=== PATIENT | female | born 1945 | race Caucasian/White ===

== ENCOUNTER 2023-11-02 22:02 | Emergency (ER) | payer OTHER ==
[2023-11-02 23:02] LABS: Absolute Basophils 0.1 K/uL (0-0.5); Absolute Eosinophils 0.4 K/uL (0-0.5); Absolute Lymphocytes (CBC) 2.8 K/uL (0.7-4.9); Absolute Monocytes 0.9 K/uL (0.1-1.3); Absolute Neutrophil 4.4 K/uL (1.8-8.0); Basophils % 0.7 % (0-1.3); Eosinophils % 4.6 % (0-4.4); Hematocrit 38.6 % (36.0-45.0); Hemoglobin 13.4 g/dL (12.0-15.0); Lymphocytes % 32.6 % (15.3-44.8); MCH 35.4 pg (27.0-35.0); MCHC 34.7 g/dL (32.0-36.0); MCV 101.9 fL (80-100); MPV 7.9 fL (7.6-11.3); Monocytes % 10.2 % (3.3-12.3); Neutrophils % 51.9 % (41.7-73.7); Nucleated Red Blood Cells % 0.1 % (0-0); Platelets 209 thou/uL (152-406); RBC Red Blood Cell Count 3.79 M/uL (3.86-4.86); Red Cell Distribution Width 13.1 % (12.1-15.2)
[2023-11-02 23:06] LABS: D-Dimer 0.234 FEUug/mL (0-0.500); PT Prothrombin Time 10.1 SECONDS (9.4-12.5); Protime INR 0.9
[2023-11-02 23:27] LABS: ALT/SGPT 21 U/L (13-56); AST/SGOT 17 U/L (15-37); Albumin 3.6 g/dL (3.4-5.0); Albumin/Globulin Ratio 1.1 (1.1-1.8); Alkaline Phosphatase 46 U/L (45-117); Anion Gap 10.5 mEq/L (5.0-15.0); BUN Blood Urea Nitrogen 34 mg/dL (7-18); Bicarbonate 25 mEq/L (21-32); Bilirubin Total 0.3 mg/dL (0.2-1.0); Globulin 3.2 g/dL (2.3-3.5); Glomerular Filtration Rate 44 ml/min (=/>90); NT PRO-BNP 419 pg/mL (<450); Potassium 3.5 mEq/L (3.5-5.1); Protein, Total 6.8 g/dL (6.4-8.2); Sodium Level 139 mEq/L (136-145); Troponin High Sensitivity 8.6 pg/mL (<58.9)
[2023-11-02 23:32] LABS: Bilirubin Direct < 0.2 mg/dL (0-0.2); Bilirubin Indirect, Calculated 0.1 mg/dL (0.2-0.8); Glucose Level 166 mg/dL (74-106)
[2023-11-03] MEDS ORDERED: NA CHLORIDE 0.9% 1,000 ML ONE (00:28)
--- NOTE | 2023-11-03 01:18 | EDPHYS ---
Physician Documentation [facility] Name: Jenise Inman Age: 78 yrs Sex: Female : 1945 Arrival Date: 11/02/2023 Time: 22:02 Bed 15 Private MD: ED Physician Eyal Stoner HPI: 11/02 01:05 This 78 yrs old Female presents to ER via Ambulatory with complaints of Irregular sb4 Pulse, Chest Pain. 01:05 Patient states that she has been experiencing palpitations and fluttering in her chest sb4 intermittently for about 1 year now. She states that she was initially on carvedilol but her PCP took her off of it. She saw cardiology who placed her on nebivolol and did a Holter monitor. After the results, he doubled her nebivolol. She states that he did not tell her what exactly the Holter monitor showed. She states that her symptoms did improve after doubling the medication. However, she states that the fluttering in her chest lasted longer tonight and that concerned her. She denies any pain, shortness of breath, dizziness. States that she has had negative stress test in the past. Historical: - Allergies: 11/01 22:08 NSAIDS; lg3 - PMHx: 22:08 Hypertensive disorder; Hypothyroidism; lg3 - PSHx: 22:08 pelvic prolapse; vaginal prolapse; Total abdominal hysterectomy; lg3 - Immunization history:: Adult Immunizations up to date. - Infectious Disease History:: Denies. - Social history:: Smoking status: Patient denies any tobacco usage or history of. ROS: 11/02 01:05 Constitutional: Negative for fever, chills, and weight loss, sb4 Cardiovascular: Positive for palpitations, All other systems are negative, Exam: 01:05 Constitutional: This is a well developed, well nourished patient who is awake, alert, sb4 and in no acute distress. Head/Face: Normocephalic, atraumatic. Eyes: Extra-ocular motions intact. Periorbital areas with no swelling, redness, or edema. ENT: Mucous membranes moist. Cardiovascular: Regular rate and rhythm with a normal S1 and S2. Respiratory: Lungs have equal breath sounds bilaterally, clear to auscultation and percussion. No rales, rhonchi or wheezes noted. No increased work of breathing, no retractions or nasal flaring. Abdomen/GI: Soft, non-tender, no distension. Skin: Warm, dry with normal turgor. Normal color with no rashes, no lesions, and no evidence of cellulitis. MS/ Extremity: Pulses equal, no cyanosis. Neurovascular intact. Full, normal range of motion. Neuro: Awake and alert, GCS 15, oriented to person, place, time, and situation. Motor strength 5/5 in all extremities. Sensory grossly intact. Vital Signs: 11/01 22:06 BP 180 / 62; Pulse 59; Resp 17; Temp 97.2(TE); Pulse Ox 98% on R/A; Weight 68.95 kg lg3 (R); Height 5 ft. 6 in. (R); Pain 0/10; 23:00 BP 130 / 55; Pulse 56; Resp 18; Pulse Ox 97% on R/A; me1 23:27 BP 155 / 66; Pulse 55; Resp 19; Pulse Ox 98% ; me1 22:06 Body Mass Index 24.53 (68.95 kg, 167.64 cm) lg3 22:06 Pain Scale: Adult lg3 MDM: 22:14 Patient medically screened. sb4 11/02 01:09 Data reviewed: vital signs, nurses notes, lab test result(s), EKG, radiologic studies, sb4 and as a result, I will discharge patient. Counseling: I had a detailed discussion with the patient and/or guardian regarding the historical points, exam findings, and any diagnostic results supporting the discharge/admit diagnosis, lab results, radiology results, the need for outpatient follow up, a regional facilities specialist, to return to the emergency department if symptoms worsen or persist or if there are any questions or concerns that arise at home. 11/01 22:32 Order name: Basic Metabolic Panel; Complete Time: 00:57 sb4 11/01 22:32 Order name: CBC with Diff; Complete Time: 23:18 sb4 11/01 22:32 Order name: D-Dimer; Complete Time: 23:18 sb4 11/01 22:32 Order name: LFT's; Complete Time: 00:57 sb4 11/01 22:32 Order name: Magnesium; Complete Time: 00:57 sb4 11/01 22:32 Order name: NT PRO-BNP; Complete Time: 00:57 sb4 11/01 22:32 Order name: PT-INR; Complete Time: 23:18 sb4 11/01 22:32 Order name: Troponin HS; Complete Time: 00:57 sb4 11/01 23:44 Order name: Add On-Lab sb4 11/01 23:49 Order name: Thyroid Stimulating Hormone; Complete Time: 00:57 EDMS 11/02 00:34 Order name: T4 Free; Complete Time: 00:57 EDMS 11/01 22:32 Order name: XRAY Chest (1 view) sb4 11/01 22:32 Order name: EKG; Complete Time: 22:33 sb4 11/01 22:32 Order name: Cardiac monitoring; Complete Time: 22:54 sb4 11/01 22:32 Order name: EKG - Nurse/Tech; Complete Time: 22:53 sb4 11/01 22:32 Order name: IV Saline Lock; Complete Time: 22:53 sb4 11/01 22:32 Order name: Labs collected and sent; Complete Time: 22:53 sb4 11/01 22:32 Order name: O2 Per Protocol; Complete Time: 22:53 sb4 11/01 22:32 Order name: O2 Sat Monitoring; Complete Time: 22:53 sb4 EC:07 Rate is 56 beats/min. Rhythm is regular, Sinus bradycardia. TX interval is normal at sb4 158 msec. QRS interval is normal at 80 msec. QT interval is normal at 442 msec. No Q waves. T waves are Normal. No ST changes noted. Clinical impression: Sinus bradycardia. Interpreted by me. Reviewed by me. Administered Medications: 00:47 Drug: NS 0.9% IV 1000 ml IV at 1 bolus Per protocol; 1000 mL bolus Route: IV; Rate: 1 jb4 bolus; Site: right antecubital; Disposition: 01:09 Chart complete. Chart complete. sb4 04:36 Co-signature as Attending Physician, Eyal Stoner MD I reviewed the patient's care rn provided by the Advanced Practice Provider and agree with the diagnosis and treatment plan. Disposition Summary: 11/03/23 01:18 Discharge Ordered Notes: Location: Home sb4 Problem: new sb4 Symptoms: have improved sb4 Condition: Stable sb4 Diagnosis - Palpitations sb4 Followup: sb4 - With: Macario Lantigua MD - When: 1 week - Reason: Recheck today's complaints, Re-evaluation by your physician Discharge Instructions: - Discharge Summary Sheet sb4 - Palpitations sb4 Forms: - Patient Portal Instructions sb4 - Leadership Thank You Letter sb4 Signatures: Dispatcher [employer] Eyal Wood MD MD rn Bryson, James, RN RN jb4 Doreen Esquivel RN RN alen3 Shannan Machuca, LAKESHIA ASHER sb4
--- NOTE | 2023-11-03 01:18 | ER ---
Nurse's Notes [facility] Name: Jenise Inman Age: 78 yrs Sex: Female : 1945 Arrival Date: 11/02/2023 Time: 22:02 Bed 15 Private MD: Diagnosis: Palpitations Presentation: 11/01 22:06 Chief complaint: Patient states: my heart is fluttering and i feel thuds for the last lg3 1.5 hours. Coronavirus screen: Client denies travel out of the [place] in the last 14 days. At this time, the client does not indicate any symptoms associated with coronavirus-19. Ebola Screen: No symptoms or risks identified at this time. Initial Sepsis Screen: Does the patient meet any 2 criteria? No. Patient's initial sepsis screen is negative. Does the patient have a suspected source of infection? No. Patient's initial sepsis screen is negative. Risk Assessment: Do you want to hurt yourself or someone else? Patient reports no desire to harm self or others. Onset of symptoms was November 02, 2023. 22:06 Method Of Arrival: Ambulatory lg3 22:06 Acuity: DANIEL 3 lg3 Triage Assessment: 22:08 General: Appears in no apparent distress. uncomfortable, Behavior is calm, cooperative. lg3 Pain: Denies pain. EENT: No deficits noted. No signs and/or symptoms were reported regarding the EENT system. Neuro: No deficits noted. Toney Agitation-Sedation Scale (RASS): 0 - Alert and Calm Level of Consciousness is awake, alert, obeys commands, Oriented to person, place, time, situation. Cardiovascular: Reports palpitations. Respiratory: No deficits noted. Airway is patent Respiratory effort is even, unlabored, Respiratory pattern is regular, symmetrical. GI: No deficits noted. No signs and/or symptoms were reported involving the gastrointestinal system. : No deficits noted. No signs and/or symptoms were reported regarding the genitourinary system. Derm: No deficits noted. No signs and/or symptoms reported regarding the dermatologic system. Skin is intact, is healthy with good turgor, Skin is dry, Skin is normal, Skin temperature is warm. Musculoskeletal: No deficits noted. No signs and/or symptoms reported regarding the musculoskeletal system. Circulation, motion, and sensation intact. Range of motion: intact in all extremities. Historical: - Allergies: 22:08 NSAIDS; lg3 - PMHx: 22:08 Hypertensive disorder; Hypothyroidism; lg3 - PSHx: 22:08 pelvic prolapse; vaginal prolapse; Total abdominal hysterectomy; lg3 - Immunization history:: Adult Immunizations up to date. - Infectious Disease History:: Denies. - Social history:: Smoking status: Patient denies any tobacco usage or history of. Screenin:20 [facility] ED Fall Risk Assessment (Adult) History of falling in the last 3 months, me1 including since admission No falls in past 3 months (0 pts) Confusion or Disorientation No (0 pts) Intoxicated or Sedated No (0 pts) Impaired Gait No (0 pts) Mobility Assist Device Used No (0 pt) Altered Elimination No (0 pt) Score/Fall Risk Level 0 - 2 = Low Risk Maintained a safe environment, Provided non-skid footwear, Hourly rounding (assess needs \\T\\ fall precautionary measures) done. Abuse screen: Denies threats or abuse. Nutritional screening: No deficits noted. Tuberculosis screening: No symptoms or risk factors identified. Assessment: 22:20 General: Appears comfortable, well groomed, well developed, well nourished, Behavior is me1 calm, cooperative, appropriate for age, Reports my heart is fluttering and then "I feels thuds" for the last 1.5 hours. Pain: Denies pain. Neuro: Level of Consciousness is awake, alert, obeys commands, Oriented to person, place, time, situation, Appropriate for age. Cardiovascular: Patient's skin is warm and dry. Cardiovascular: Reports palpitations. Respiratory: Airway is patent Respiratory effort is even, unlabored, Respiratory pattern is regular, symmetrical. GI: No signs and/or symptoms were reported involving the gastrointestinal system. : No signs and/or symptoms were reported regarding the genitourinary system. EENT: No signs and/or symptoms were reported regarding the EENT system. Derm: Skin is intact, is healthy with good turgor, Skin is pink, warm \\T\\ dry. Musculoskeletal: No signs and/or symptoms reported regarding the musculoskeletal system. 11/02 00:00 Reassessment: Patient appears in no apparent distress at this time. Patient and/or jb4 family updated on plan of care and expected duration. Pain level reassessed. Patient is alert, oriented x 3, equal unlabored respirations, skin warm/dry/pink. 01:26 Reassessment: Patient appears in no apparent distress at this time. Patient and/or jb4 family updated on plan of care and expected duration. Pain level reassessed. Patient is alert, oriented x 3, equal unlabored respirations, skin warm/dry/pink. D/c pending completion of IV fluids. Vital Signs: 11/01 22:06 BP 180 / 62; Pulse 59; Resp 17; Temp 97.2(TE); Pulse Ox 98% on R/A; Weight 68.95 kg lg3 (R); Height 5 ft. 6 in. (R); Pain 0/10; 23:00 BP 130 / 55; Pulse 56; Resp 18; Pulse Ox 97% on R/A; me1 23:27 BP 155 / 66; Pulse 55; Resp 19; Pulse Ox 98% ; me1 22:06 Body Mass Index 24.53 (68.95 kg, 167.64 cm) lg3 22:06 Pain Scale: Adult lg3 ED Course: 22:04 Patient arrived in ED. jj6 22:05 Shannan Machuca PA-C is PHCP. sb4 22:05 Eyal Stoner MD is Attending Physician. sb4 22:08 Triage completed. lg3 22:08 Arm band placed on left wrist. lg3 22:17 Lucinda Gamez, RN is Primary Nurse. me1 22:20 Patient has correct armband on for positive identification. Bed in low position. Call id1 light in reach. Side rails up X2. Provided Education on: POC. Verbalized understanding. . Client placed on continuous cardiac and pulse oximetry monitoring. NIBP monitoring applied. investigation clerk on. Pulse ox on. NIBP on. 22:20 No provider procedures requiring assistance completed. Patient maintains SpO2 me1 saturation greater than 95% on room air. 22:48 XRAY Chest (1 view) In Process Unspecified. EDMS 22:53 Basic Metabolic Panel Sent. me1 22:53 CBC with Diff Sent. me1 22:53 D-Dimer Sent. me1 22:53 LFT's Sent. me1 22:53 Magnesium Sent. me1 22:53 NT PRO-BNP Sent. me1 22:53 PT-INR Sent. me1 22:53 Troponin HS Sent. me1 22:53 Initial lab(s) drawn, by me, sent to lab. Inserted saline lock: 22 gauge in right id1 antecubital area, using aseptic technique. Blood collected. Flushed with 10 mL NS. 23:46 Add On-Lab Sent. id1 11/02 01:17 Macario Lantigua MD is Referral Physician. sb4 Administered Medications: 00:47 Drug: NS 0.9% IV 1000 ml IV at 1 bolus Per protocol; 1000 mL bolus Route: IV; Rate: 1 jb4 bolus; Site: right antecubital; Medication: 11/01 22:20 VIS not applicable for this client. [facility] Outcome: 11/02 01:18 Discharge ordered by . sb4 02:29 Patient left the ED. jb4 Signatures: Dispatcher [employer] EDRamos Newton, RN RN jb4 Doreen Esquivel RN RN lg3 Joana Lambert Sophia, PABrittanyC PA-C sb4 Lucinda Gamez RN RN id1 Corrections: (The following items were deleted from the chart) 11/01 22:43 22:06 Chief complaint: Patient states: my heart is fluttering and i feel thuds for the me1 last 1.5 hours 3 23:19 22:06 Chief complaint: Patient states: my heart is fluttering and i feel thuds for the me1 last 1.5 hours id1
[2023-11-03 03:14] VITALS: TEMP 97.2
[2023-11-03 03:18] VITALS: BP 155/66; O2SAT 98
--- NOTE | 2023-11-03 08:33 | RAD REPORT ---
EXAM DESCRIPTION: RAD - Chest Single View - 11/02/2023 10:47 pm CLINICAL HISTORY: CHEST PAIN Chest pain. COMPARISON: Chest Single View dated 12/28/2021; CHEST PA AND LAT 2 VIEW dated 01/01/2013 FINDINGS: Portable technique limits examination quality. The lungs are grossly clear. The heart is normal in size. No displaced fractures. IMPRESSION: No acute intrathoracic process suspected.
--- NOTE | 2023-11-04 17:01 | EKG ---
Test Date: 2023-11-02 Test Time: 22:10:06 Expert Witness: AF MEASUREMENT RESULTS: Intervals: Rate: 56 ID: [id number] QRSD: 80 QT: 442 QTc: 426 [place]: P: 74 ID: [id number] QRS: 76 T: 82 INTERPRETIVE STATEMENTS: Sinus bradycardia Otherwise normal ECG Compared to ECG 11/02/2023 22:08:21 No significant changes Electronically Signed On 11-04-23 16:58:54 CDT by Chucho Palumbo
--- NOTE | 2023-11-04 17:01 | EKG ---
Test Date: 2023-11-02 Test Time: 22:08:21 Janitorial Account Manager: AF MEASUREMENT RESULTS: Intervals: Rate: 0 [place]: QRSD: 0 QT: 0 QTc: 0 [place]: P: [place]: QRS: 0 T: 0 INTERPRETIVE STATEMENTS: No QRS complexes found, no ECG analysis possible Compared to ECG 12/28/2021 00:49:22 Sinus bradycardia no longer present Electronically Signed On 11-04-23 16:58:57 CDT by Chucho Palumbo
== END 2023-11-03 02:29 | disposition home or self-care (01) ==
LOC: ER 22:02
DX: R00.2 Palpitations (principal); I10 Essential (primary) hypertension; E30.9 Disorder of puberty, unspecified
CPT/HCPCS: 93005 ×2; 85025; 80048; 36415; 83735; 85610; 85379; 80076; 84443; 84484; 84439; 83880; 71045; 99284; J7030

== ENCOUNTER 2024-04-10 14:06 | Emergency (ER) | payer OTHER ==
[2024-04-10] MEDS ORDERED: NA CHLORIDE 0.9% 1,000 ML ONE (14:29)
[2024-04-10 14:50] LABS: Absolute Lymphocytes (CBC) 1.1 K/uL (0.7-4.9); Absolute Monocytes 1.3 K/uL (0.1-1.3); Absolute Neutrophil 7.9 K/uL (1.8-8.0); Basophils % 0.2 % (0-1.3); Eosinophils % 0.3 % (0-4.4); Hematocrit 36.2 % (36.0-45.0); Hemoglobin 12.5 g/dL (12.0-15.0); Lymphocytes % 10.3 % (15.3-44.8); MCH 34.9 pg (27.0-35.0); MCHC 34.5 g/dL (32.0-36.0); MCV 101.1 fL (80-100); MPV 7.5 fL (7.6-11.3); Monocytes % 12.9 % (3.3-12.3); Neutrophils % 76.3 % (41.7-73.7); Platelets 224 thou/uL (152-406); RBC Red Blood Cell Count 3.58 M/uL (3.86-4.86); Red Cell Distribution Width 12.4 % (12.1-15.2)
[2024-04-10 15:07] LABS: Albumin 2.7 g/dL (3.4-5.0); Albumin/Globulin Ratio 0.7 (1.1-1.8); Anion Gap 11.4 mEq/L (5.0-15.0); Bilirubin Total 0.4 mg/dL (0.2-1.0); Globulin 3.9 g/dL (2.3-3.5); Potassium 3.4 mEq/L (3.5-5.1); Protein, Total 6.6 g/dL (6.4-8.2)
--- NOTE | 2024-04-10 15:28 | RAD REPORT ---
EXAMINATION: CT ABDOMEN AND PELVIS WITHOUT CONTRAST CLINICAL INDICATION: Abdominal pain TECHNIQUE: CT abdomen and pelvis was performed, as per department protocol. IV contrast and oral was not administered.Axial, sagittal and coronal reconstructions were obtained. One or more of the following dose reduction techniques were used: Automated exposure control, adjustment of the mA and/o r kV according to the patient size, and/or iterative reconstruction. Unless otherwise specified, incidental findings do not require dedicated imaging follow-up. [id number]. COMPARISON: No prior exam. FINDINGS: The lack of intravenous and oral contrast limits evaluation of solid organs, vessels and bowel. Mild stranding adjacent to the right renal pelvis and proximal right ureter. No hydronephrosis. Renal calculus not seen. Ureteral calculus not noted. Left kidney grossly normal. Liver, spleen pancreas and adrenals grossly normal. No adnexal mass. No evidence of diverticulitis. IMPRESSION: Mild stranding adjacent to the right renal pelvis and proximal right ureter may inflammation.
[2024-04-10 15:55] LABS: Specific Gravity 1.015 (1.005-1.030); Sqamous Epithelial <5 /HPF (None Seen); Urine Bacteria None Seen /HPF (<20); Urine Bilirubin NEGATIVE (Negative); Urine Blood Negative (Negative); Urine Clarity Extremely Turbid (Clear); Urine Color Yellow (Yellow); Urine Crystals Unidentified Few /HPF (None Seen); Urine Culture Reflex Order REFLEXED; Urine Glucose NEGATIVE (Negative); Urine Ketones 1+ (Negative); Urine Micro Reflex YN NO BILL MICROSCOPIC; Urine Mucus Slight /HPF (None Seen); Urine Nitrite NEGATIVE (Negative); Urine Protein TRACE (Negative); Urine RBC <5 /HPF (None Seen); Urine Urobilinogen Normal (Normal); Urine WBC Clump Occasional /HPF (None Seen); Urine Yeast (Budding) Trace /HPF (None Seen); Urine pH 5.5 (5.0-7.0)
--- NOTE | 2024-04-10 16:26 | ER ---
Nurse's Notes [facility] Name: Jenise Inman Age: 79 yrs Sex: Female : 1945 Arrival Date: 04/10/2024 Time: 14:06 Bed 15 Private MD: Diagnosis: Suprapubic Abdominal Pain;Hypokalemia;Hypo-osmolality and hyponatremia;Renal Dysfunction;UTI/ Urinary tract infection, site not specified Presentation: 04/10 14:15 Chief complaint: Patient states: Diagnosed with UTI on Saturday and has been taking aa5 Macrobid since then without improvement. 14:15 Acuity: DANIEL 3 aa5 14:15 Method Of Arrival: Ambulatory aa5 14:17 Coronavirus screen: Client denies travel out of the [place] in the last 14 days. At this db time, the client does not indicate any symptoms associated with coronavirus-19. Ebola Screen: Patient negative for fever greater than or equal to 101.5 degrees Fahrenheit, and additional compatible Ebola Virus Disease symptoms Patient denies exposure to infectious person. Patient denies travel to an Ebola-affected area in the 21 days before illness onset. No symptoms or risks identified at this time. Initial Sepsis Screen: Does the patient meet any 2 criteria? No. Patient's initial sepsis screen is negative. Does the patient have a suspected source of infection? No. Patient's initial sepsis screen is negative. Risk Assessment: Do you want to hurt yourself or someone else? Patient reports no desire to harm self or others. Onset of symptoms was April 10, 2024. Triage Assessment: 14:17 General: Appears in no apparent distress. comfortable, Behavior is calm, cooperative. db Pain: Complains of pain in pelvis. Neuro: Level of Consciousness is awake, alert, obeys commands, Oriented to person, place, time, situation. Respiratory: Airway is patent Respiratory effort is even, unlabored, Respiratory pattern is regular, symmetrical. : Reports urinary frequency. Historical: - Allergies: 14:48 NSAIDS; db - PMHx: 14:48 Hypertensive disorder; Hypothyroidism; db - PSHx: 14:48 pelvic prolapse; Total abdominal hysterectomy; vaginal prolapse; db - Immunization history:: Adult Immunizations unknown. - Infectious Disease History:: Denies. - Social history:: Smoking status: Patient/guardian denies using tobacco, but has a distant history of tobacco abuse. Screenin:30 [facility] ED Fall Risk Assessment (Adult) History of falling in the last 3 months, db including since admission No falls in past 3 months (0 pts) Confusion or Disorientation No (0 pts) Intoxicated or Sedated No (0 pts) Impaired Gait No (0 pts) Mobility Assist Device Used No (0 pt) Altered Elimination No (0 pt) Score/Fall Risk Level 0 - 2 = Low Risk Oriented to surroundings, Maintained a safe environment. Abuse screen: Denies threats or abuse. Denies injuries from another. Nutritional screening: No deficits noted. Tuberculosis screening: Never had TB. Assessment: 14:30 Reassessment: Patient appears in no apparent distress at this time. Patient and/or db family updated on plan of care and expected duration. Pain level reassessed. Patient is alert, oriented x 3, equal unlabored respirations, skin warm/dry/pink. General: Appears in no apparent distress. comfortable, Behavior is calm, cooperative. 16:44 Reassessment: Patient appears in no apparent distress at this time. Patient and/or db family updated on plan of care and expected duration. Pain level reassessed. Patient is alert, oriented x 3, equal unlabored respirations, skin warm/dry/pink. Vital Signs: 14:17 BP 125 / 43; Pulse 62; Resp 16; Temp 98.2; Pulse Ox 98% 16 lpm ; Weight 70.31 kg; db Height 5 ft. 6 in. ; 14:30 BP 122 / 54; Pulse 59; Resp 16; Pulse Ox 97% on R/A; db 15:30 BP 123 / 48; Pulse 61; Resp 16; Pulse Ox 97% on R/A; db 16:30 BP 129 / 63; Pulse 58; Resp 16; Pulse Ox 97% on R/A; db 14:17 Body Mass Index 25.02 (70.31 kg, 167.64 cm) db ED Course: 14:07 Patient arrived in ED. ec2 14:08 Regino Mckinney MD is Attending Physician. ec2 14:14 Arm band placed on. aa5 14:16 Triage completed. aa5 14:30 Hilary Doherty, RN is Primary Nurse. db 14:40 Initial lab(s) drawn, sent to lab. Missed attempt(s): 20 gauge in right antecubital db area. Bleeding controlled, band aid applied, catheter tip intact. 14:[address] via wheelchair. db 14:51 CT Abd/Pelvis - Without Contrast In Process Unspecified. EDMS 14:51 Patient has correct armband on for positive identification. Bed in low position. Call db light in reach. Side rails up X 1. Pulse ox on. NIBP on. 15:00 Inserted saline lock: 22 gauge in left antecubital area, using aseptic technique. db Flushed with 10 mL NS. 17:00 Provided Education on: DISCHARGE, MEDICATIONS AND FOLLOWUP. db 17:00 No provider procedures requiring assistance completed. IV discontinued, intact, db bleeding controlled, No redness/swelling at site. Administered Medications: 15:00 Drug: NS 0.9% IV 1000 ml IV at 1 bolus Per protocol; to be given as a bolus over 60 db minutes Route: IV; Rate: 1 bolus; Site: left antecubital; 16:44 Follow up: Response: No adverse reaction; IV Status: Completed infusion; IV Intake: db 1000ml 16:35 Drug: Trimethoprim-Sulfamethoxazole PO (160 mg-800 mg (DS) 1 tablet PO once Route: PO; db 17:00 Follow up: Response: No adverse reaction db Medication: 14:30 VIS not applicable for this client. db Intake: 16:44 IV: 1000ml; Total: 1000ml. db Outcome: 16:25 Discharge ordered by . ec2 17:00 Discharged to home ambulatory, with family, db 17:00 Condition: stable 17:00 Discharge instructions given to patient, family, Instructed on discharge instructions, follow up and referral plans. Prescriptions given X 2, 17:02 Patient left the ED. db Signatures: Dispatcher [employer] [facility] Alicia Mccarthy, RN RN aa5 Hilary Doherty RN RN db Regino Mckinney MD MD ec2
--- NOTE | 2024-04-10 16:26 | EDPHYS ---
Physician Documentation [facility] Name: Jenise Inman Age: 79 yrs Sex: Female : 1945 Arrival Date: 04/10/2024 Time: 14:06 Bed 15 Private MD: ED Physician Regino Mckinney HPI: 04/10 14:24 This 79 yrs old Female presents to ER via Unassigned with complaints of ec2 Urinary Problem. 14:24 Patient arrives today for evaluation of lower abdominal pain. Patient reports that she ec2 was diagnosed with a urinary tract infection 2 weeks ago, had taken antibiotics, had recurrence, had restarted antibiotics several days ago and has worsening symptoms with abdominal pain. Patient reports she is generally feeling unwell. Patient reports previous abdominal surgeries including hysterectomy, appendectomy. Historical: - Allergies: 14:48 NSAIDS; db - PMHx: 14:48 Hypertensive disorder; Hypothyroidism; db - PSHx: 14:48 pelvic prolapse; Total abdominal hysterectomy; vaginal prolapse; db - Immunization history:: Adult Immunizations unknown. - Infectious Disease History:: Denies. - Social history:: Smoking status: Patient/guardian denies using tobacco, but has a distant history of tobacco abuse. Exam: 14:24 Constitutional: GEN: NAD Head: atraumatic Eyes: EOMI Ears: External ears are ec2 normal. CV: regular rate LUNGS: no respiratory distress ABD: non-distended, soft, not guarding, not rigid SKIN: no evidence of rashes MSK: no evidence of trauma Vital Signs: 14:17 BP 125 / 43; Pulse 62; Resp 16; Temp 98.2; Pulse Ox 98% 16 lpm ; Weight 70.31 kg; db Height 5 ft. 6 in. ; 14:30 BP 122 / 54; Pulse 59; Resp 16; Pulse Ox 97% on R/A; db 15:30 BP 123 / 48; Pulse 61; Resp 16; Pulse Ox 97% on R/A; db 16:30 BP 129 / 63; Pulse 58; Resp 16; Pulse Ox 97% on R/A; db 14:17 Body Mass Index 25.02 (70.31 kg, 167.64 cm) db MDM: 14:12 Medical Screening Exam initiated ec2 14:24 Data reviewed: vital signs, nurses notes. ED course: Patient arrives today for ec2 evaluation of lower abdominal pain. Examination yields abdominal findings as above. Will obtain lab work, urine studies, CT abdomen pelvis. Differential diagnosis include processes such as UTI, intra-abdominal infection, gastritis. 04/10 14:12 Order name: UAM; Complete Time: 16:25 ec2 04/10 14:22 Order name: CBC with Diff; Complete Time: 15:19 ec2 04/10 14:22 Order name: CMP; Complete Time: 15:19 ec2 04/10 14:22 Order name: Lipase; Complete Time: 15:19 ec2 04/10 15:59 Order name: Urine Culture EDMS 04/10 14:22 Order name: CT Abd/Pelvis - Without Contrast; Complete Time: 15:28 ec2 04/10 14:22 Order name: IV Saline Lock; Complete Time: 15:20 ec2 04/10 14:22 Order name: Labs collected and sent; Complete Time: 14:41 ec2 Administered Medications: 15:00 Drug: NS 0.9% IV 1000 ml IV at 1 bolus Per protocol; to be given as a bolus over 60 db minutes Route: IV; Rate: 1 bolus; Site: left antecubital; 16:44 Follow up: Response: No adverse reaction; IV Status: Completed infusion; IV Intake: db 1000ml 16:35 Drug: Trimethoprim-Sulfamethoxazole PO (160 mg-800 mg (DS) 1 tablet PO once Route: PO; db 17:00 Follow up: Response: No adverse reaction db Disposition Summary: 04/10/24 16:25 Discharge Ordered Notes: Location: Home ec2 Condition: Stable ec2 Diagnosis - Suprapubic Abdominal Pain ec2 - Hypokalemia ec2 - Hypo-osmolality and hyponatremia ec2 - Renal Dysfunction ec2 - UTI/ Urinary tract infection, site not specified ec2 Followup: ec2 - With: Private Physician - When: - Reason: Re-evaluation by your physician Discharge Instructions: - Discharge Summary Sheet ec2 - Urinary Tract Infection, Adult, [id number] ec2 Forms: - Medication Reconciliation Form ec2 - Antibiotic Education ec2 - Prescription Opioid Use ec2 - Patient Portal Instructions ec2 - Leadership Thank You Letter ec2 Prescriptions: - Pyridium 200 mg Oral Tablet - take 1 tablet ORAL route every 8 hours for 3 days; 9 tablet; Refills: 0, ec2 Product Selection Permitted - Bactrim DS 800-160 mg Oral Tablet - take 1 tablet ORAL route every 12 hours for 7 days; 14 tablet; Refills: 0, ec2 Product Selection Permitted Signatures: Dispatchnahomy PortilloHoHilary Dewey RN RN Regino Vigil MD MD ec2
[2024-04-10] MEDS ORDERED: SMZ./TMP. 800/160 MG TABLET ONE (16:48)
[2024-04-10 17:07] VITALS: TEMP 98.2
[2024-04-10 17:08] VITALS: O2SAT 97
[2024-04-10 17:10] VITALS: BP 129/63
== END 2024-04-10 17:02 | disposition home or self-care (01) ==
LOC: ER 14:06
DX: N39.0 Urinary tract infection, site not specified (principal); N28.9 Disorder of kidney and ureter, unspecified; E87.6 Hypokalemia; E87.1 Hypo-osmolality and hyponatremia
CPT/HCPCS: 96361; 87088; 85025; 81001; 87086; 36415; 83690; 80053; 74176; 96360; 99285; J7030; 87077; 87186